=== PATIENT | male | born 1995 | race Caucasian/White ===

== ENCOUNTER 2021-06-17 13:18 | Emergency (ER) | payer OTHER, SELFPAY ==
[2021-06-17 14:35] VITALS: BP 131/67; PULSE 61; RESP 16; TEMP 36.9; O2SAT 99
--- NOTE | 2021-06-17 15:30 | ED.URI ---
HPI - URI/Sore Throat General Chief Complaint: Upper Respiratory Infection Stated Complaint: Ear Problem/Congestion Time Seen by Provider: 06/17/21 14:51 Source: patient and RN notes reviewed History of Present Illness HPI Narrative: Patient is a 26-year-old male who presents the urgent care with complaints of bilateral ear pain, more so on the left, chest congestion and mild cough. Patient has had the Covid vaccine and denies any recent exposures. Denies of fever, chills, nausea, vomiting or headache. Patient states symptoms started 2 days ago and he has been taking DayQuil and flushing the ear. No other acute complaints. No acute distress noted. Patient read the plan of care. Some parts of this dictation were generated by voice recognition software and may contain typographical and/or grammatical inaccuracies. Related Data Allergies Allergy/AdvReac Type Severity Reaction Status Date / Time Sulfa (Sulfonamide Allergy Unknown Verified 06/17/21 15:07 Antibiotics) Review of Systems Review of Systems: CONSTITUTIONAL: Denies fever, chills, or sweats. EYES: Denies visual changes, redness, or discharge. ENT: Reports of bilateral otalgia, postnasal drainage and congestion CARDIOVASCULAR: Denies chest pain, palpitations, or edema. RESPIRATORY: Reports a mild cough and chest congestion without dyspnea GASTROINTESTINAL: Denies abdominal pain, nausea, vomiting, or diarrhea. GENITOURINARY: Denies dysuria or hematuria. SKIN: Denies rash or itching. MUSCULOSKELETAL: Denies back pain, joint pain, or myalgia. NEUROLOGIC: Denies headache, numbness, or weakness. All other systems reviewed are negative, except as documented in HPI. PMFSH Comments At the time of my signature, I reviewed and agree with the nursing past medical, surgical, social, and family history. There is no relevant family history pertinent to the patient complaint. Exam Narrative: GENERAL: This is a well-nourished, well-developed patient, in no apparent distress. HEAD: normocephalic, atraumatic. EYES: PERRL. Sclera clear/white. Vision is grossly intact. EARS: External ears normal, mild erythematous bilateral auditory canals and drainage, mild to moderate fluid bilateral TMs without otitis. TMs normal without perforation. Hearing grossly intact. NOSE: External nose normal with no obvious nasal discharge, nares without redness, clear rhinorrhea. THROAT: Mucous membranes moist, posterior pharynx clear. Absent tonsils. Moderate postnasal drainage and mild to moderate erythema NECK: Neck supple CARDIOVASCULAR: Regular rate and rhythm without murmurs, gallops, or rubs. RESPIRATORY: Clear to auscultation. Breath sounds equal bilaterally. No wheezes, rales, or rhonchi. SKIN: warm, intact with no suspicious lesions or rash, good texture and turgor. NEURO: awake, alert, and oriented to person, place and time. There were no obvious focal neurologic abnormalities. EXTREMITIES: No clubbing, cyanosis, or edema. Course Course Level of Care: Express Care Visit Vital Signs Vital signs: Vital Signs Temperature 98.4 F 06/17/21 14:35 Pulse Rate 61 06/17/21 14:35 Respiratory Rate 16 06/17/21 14:35 Blood Pressure 131/67 06/17/21 14:35 Pulse Oximetry 99 06/17/21 14:35 Temperature 98.4 F 06/17/21 14:35 Pulse Rate 61 06/17/21 14:35 Respiratory Rate 16 06/17/21 14:35 Blood Pressure 131/67 06/17/21 14:35 Pulse Oximetry 99 06/17/21 14:35 Reviewed MDM - URI/Sore Throat MDM Narrative Medical decision making narrative: Advised the patient to use an [id number] antihistamine prior to bedtime such as Zyrtec, Claritin or Benadryl. Use Flonase nasal spray prior to bedtime. Use a humidifier at night and do not sleep with a fan on. Complete the steroid regimen as prescribed. Be sure to eat and drink with medication. Follow-up your PCP 2 to 5 days or for worsening symptoms or failure to improve. Differential Diagnosis Differential diagnosis: Likely u
== END 2021-06-17 15:42 | disposition home or self-care (01) ==
PROVIDERS: Emergency Provider Nurse Practitioner Family
DX: H92.03 Otalgia, bilateral (principal); J32.9 Chronic sinusitis, unspecified
CPT/HCPCS: 99213; G0463